=== PATIENT | female | born 1960 | race Caucasian/White ===

== ENCOUNTER → 2018-07-19 | Outpatient (CLI) | payer BC ==
--- NOTE | 2018-07-19 12:44 | MM ---
Reason for exam: screening (asymptomatic). Last mammogram was performed 1 year and 2 months ago. History: Patient is postmenopausal and is nulliparous. Took hormonal contraceptives for 25 years. Physical Findings: A clinical breast exam by your physician is recommended on an annual basis and results should be correlated with mammographic findings. MG Screening Mammo w CAD Bilateral CC and MLO view(s) were taken. Prior study comparison: May 31, 2017, mammogram, performed at [facility]. December 03, 2015, mammogram, performed at [facility]. The breast tissue is heterogeneously dense. This may lower the sensitivity of mammography. There is no discrete abnormality. No significant changes when compared with prior studies. ASSESSMENT: Negative, BI-RAD 1 RECOMMENDATION: Routine screening mammogram of both breasts in 1 year.
== END | disposition home or self-care (01) ==
LOC: RADMAMWWP 06:55
PROVIDERS: ATTEND Internal Medicine
DX: Z12.31 Encounter for screening mammogram for malignant neoplasm of breast (principal)
CPT/HCPCS: 77067

== ENCOUNTER → 2021-06-04 | Outpatient (CLI) | payer OTHER ==
--- NOTE | 2021-06-04 10:57 | XR ---
EXAMINATION TYPE: XR hand complete RT DATE OF EXAM: 06/04/2021 COMPARISON: NONE HISTORY: Right third digit redness and swelling TECHNIQUE: Three views are submitted. FINDINGS: The osseous structures are intact. The joint spaces are preserved and there is no acute fracture or dislocation. Tiny bony density seen adjacent to the PIP joint. Digit. Appears to be soft tissue janet a IMPRESSION: 1. Soft tissue edema involving the third digit with a tiny bony density adjacent to the PIP joint cou ld been the basis of a tiny avulsion fracture. Correlate for history of trauma. No destructive change s seen
== END | disposition home or self-care (01) ==
LOC: RADXRMAIN 10:20
PROVIDERS: ATTEND Emergency Medicine
DX: R60.9 Edema, unspecified (principal)

== ENCOUNTER → 2021-07-19 | Outpatient (CLI) | payer BC, MEDICAID ==
--- NOTE | 2021-07-20 10:31 | BD ---
EXAMINATION TYPE: Axial Bone Density DATE OF EXAM: 07/19/2021 COMPARISON: NONE CLINICAL HISTORY: Z78.0 POST MENOPAUSAL Height: 5 FT 5 IN Weight: 205 FRAX RISK QUESTIONS: Alcohol (3 or more units per day): NO Family History (Parent hip fracture): NO Glucocorticoids (More than 3mos): NO (Ex: prednisone, prednisolone, methylprednisolone, dexamethasone, and hydrocortisone). History of Fracture in Adulthood: NO Secondary Osteoporosis: 1. Type 1 Diabetes: NO 2. Hyperthyroidism: NO 3. Menopause before 45: NO 4. Malnutrition: NO 5. Chronic liver disease: NO Rheumatoid Arthritis: NO Current Tobacco Use: NO RISK FACTORS HISTORY OF: Surgery to Spine/Hip(right/left)/Wrist (right/left): LEFT HIP REPLACEMENT When: 2001 Family History of Osteoporosis: NO Active: YES Diet low in dairy products/other sources of calcium: NO Postmenopausal woman: YES Take estrogen and/or progesterone medications: NO Lost more than 2 inches in height since high school: Frequent falls: NO Poor Health: GOOD Hyperparathyroidism: NO Adrenal Insufficiency: NO MEDICATIONS: Additional Medications: BLOOD PRESSURE MEDS Additional History: EXAM MEASUREMENTS: Bone mineral densitometry was performed using the [employer] System. Bone mineral density as measured about the Lumbar spine is: ----- L1-L4(G/cm2): 1.199 T Score Values are as follows: ----- L2: -0.7 ----- L3: 0.1 ----- L4: 0.5 ----- L1-L4: 0.2 BASELINE Bone mineral density about the R hip (g/cm2): 1.008 T Score values are as follows: -----R Neck: -0.2 -----R Total: 0.8 BASELINE IMPRESSION: Normal (Values between +1 and -1 indicate normal bone mass). Consider repeating this study in 5 year s or sooner if there is some new clinical indication. NOTE: T-SCORE=SD OF THE YOUNG ADULT MEAN.
--- NOTE | 2021-07-20 12:27 | MM ---
Reason for exam: screening (asymptomatic). Last mammogram was performed 3 years ago. History: Patient is postmenopausal and is nulliparous. Took hormonal contraceptives for 25 years. Physical Findings: A clinical breast exam by your physician is recommended on an annual basis and results should be correlated with mammographic findings. MG Screening Mammo w CAD Bilateral CC and MLO view(s) were taken. Prior study comparison: July 19, 2018, bilateral MG screening mammo w CAD. May 31, 2017, mammogram, performed at [facility]. There are scattered fibroglandular densities. No significant changes when compared with prior studies. ASSESSMENT: Benign, BI-RAD 2 RECOMMENDATION: Routine screening mammogram of both breasts in 1 year.
== END | disposition home or self-care (01) ==
LOC: RADMAMWWP 13:44
PROVIDERS: ATTEND Internal Medicine
DX: Z12.31 Encounter for screening mammogram for malignant neoplasm of breast (principal); Z78.0 Asymptomatic menopausal state
CPT/HCPCS: 77067; 77080

== ENCOUNTER 2022-03-17 08:49 | Emergency (ER) | payer MEDICAID, OTHER ==
[2022-03-17 08:54] VITALS: TEMP 99.1
--- NOTE | 2022-03-17 09:23 | ED ---
General Adult HPI - General Chief complaint: Allergic Reaction Stated complaint: Left arm swollen/pain Time Seen by Provider: 03/17/22 08:58 Source: patient, RN notes reviewed Mode of arrival: ambulatory Limitations: no limitations - History of Present Illness Initial comments: 7-year-old female presents emergency Department chief complaint of reaction from her shingles vaccine. Patient states she received this yesterday morning, started not feeling well yesterday low-grade temp, congestion. She states she was tested twice for cold which is negative. Patient called PCP advised to come emergency department. She states she has a small area of redness and swelling to her left arm but states it's nothing concerning, not worsening. Patient offers no difficulty. - Related Data Allergies Allergy/AdvReac Type Severity Reaction Status Date / Time No Known Allergies Allergy Verified 03/17/22 08:53 Review of Systems ROS Statement: Those systems with pertinent positive or pertinent negative responses have been documented in the HPI. ROS Other: All systems not noted in ROS Statement are negative. Past Medical History Past Medical History: Hypertension History of Any Multi-Drug Resistant Organisms: None Reported Past Surgical History: Joint Replacement Additional Past Surgical History / Comment(s): hip 2002 Past Psychological History: No Psychological Hx Reported Smoking Status: Never smoker Past Alcohol Use History: None Reported Past Drug Use History: None Reported General Exam Limitations: no limitations General appearance: alert, in no apparent distress Head exam: Present: atraumatic, normocephalic, normal inspection Eye exam: Present: normal appearance, PERRL, EOMI. Absent: scleral icterus, conjunctival injection, periorbital swelling ENT exam: Present: normal exam, mucous membranes moist Neck exam: Present: normal inspection, full ROM. Absent: tenderness, meningismus, lymphadenopathy Respiratory exam: Present: normal lung sounds bilaterally. Absent: respiratory distress, wheezes, rales, rhonchi, stridor Cardiovascular Exam: Present: regular rate, normal rhythm, normal heart sounds. Absent: systolic murmur, diastolic murmur, rubs, gallop, clicks Extremities exam: Present: other (Left deltoid region there is a small area of erythema mild tenderness) Neurological exam: Present: alert, oriented X3 Skin exam: Present: warm, dry, intact, normal color. Absent: rash Course Vital Signs 03/17/22 03/17/22 08:50 09:43 Temperature 99.1 F Pulse Rate 109 H 75 Respiratory 18 16 Rate Blood Pressure 148/80 130/80 O2 Sat by Pulse 97 99 Oximetry Medical Decision Making - Medical Decision Making Patient has pain response, localized reaction from shingles vaccine patient has no signs distress will be discharged with strict return parameters. Disposition Clinical Impression: Vaccine reaction Disposition: HOME SELF-CARE Condition: Stable Instructions (If sedation given, give patient instructions): General Allergic Reaction (ED) Additional Instructions: Please return to the Emergency Department if symptoms worsen or any other concer ns. Is patient prescribed a controlled substance at d/c from ED?: No Referrals: Krishna Barr MD [Primary Care Provider] - 1-2 days Time of Disposition: 09:23
[2022-03-17 09:43] VITALS: BP 130/80; PULSE 75; RESP 16
== END 2022-03-17 10:02 | disposition home or self-care (01) ==
LOC: EC 08:49
DX: T88.1XXA Other complications following immunization, not elsewhere classified, initial encounter (principal); I10 Essential (primary) hypertension

== ENCOUNTER → 2022-06-28 | Outpatient (CLI) | payer MEDICAID ==
--- NOTE | 2022-06-28 17:32 | US ---
EXAMINATION TYPE: US kidneys/renal and bladder DATE OF EXAM: 06/28/2022 COMPARISON: NONE CLINICAL HISTORY: R82.998 OTHER ABNORMAL FINDINGS IN URINE. Calcium oxidate crystals in urine. EXAM MEASUREMENTS: Right Kidney: 13.8 x 6.5 x 5.8 cm Left Kidney: 11.5 x 5.6 x 6.5 cm Right Kidney: Appears enlarged. No hydronephrosis or masses seen Left Kidney: No hydronephrosis or masses seen Bladder: Appears anechoic. Bilateral Jets seen: Yes IMPRESSION: 1. No acute ultrasound abnormality bilateral kidneys. 2. No definite shadowing renal calculi identified during the exam.
== END | disposition home or self-care (01) ==
LOC: RADUSWWP 06:43
PROVIDERS: ATTEND Internal Medicine
DX: R82.998 Other abnormal findings in urine (principal)
CPT/HCPCS: 76770

== ENCOUNTER → 2023-01-10 | Outpatient (CLI) | payer BC ==
--- NOTE | 2023-01-11 18:42 | MM ---
Reason for Exam: Screening (asymptomatic). Last mammogram was performed 1 year(s) and 6 month(s) ago. Patient History: Menarche at age 17. Patient has no children. Postmenopausal. Patient used Hormonal Contraceptives for 25 years. Risk Values: Marcela 5 year model risk: 1.5%. NCI Lifetime model risk: 7.2%. Prior Study Comparison: 05/31/2017 Screening Mammogram, [facility]. 07/19/2018 Bilateral Screening Mammogram, [facility]. 07/19/2021 Bilateral Screening Mammogram, [facility]. Tissue Density: There are scattered fibroglandular densities. Findings: Analyzed By CAD. There appears symmetrical and stable. No significant interval change in No suspicious groups of microcalcifications, spiculated or lobular masses, architectural distortion or other secondary signs of malignancy are mammographically apparent. Overall Assessment: Benign, BI-RAD 2 Management: Screening Mammogram of both breasts in 1 year. A negative mammogram report should not preclude additional follow up of suspicious palpable abnormalities. Patient should continue monthly self breast exam. A clinical breast exam by your physician is recommended on an annual basis and results should be correlated with mammographic findings. Electronically signed and approved by: Td Saha D.O. Radiologis
== END | disposition home or self-care (01) ==
LOC: RADMAMWWP 13:19
PROVIDERS: ATTEND Internal Medicine
DX: Z12.31 Encounter for screening mammogram for malignant neoplasm of breast (principal); Z78.0 Asymptomatic menopausal state
CPT/HCPCS: 77063; 77067

== ENCOUNTER → 2023-05-29 | Outpatient (CLI) | payer OTHER ==
--- NOTE | 2023-05-29 16:18 | XR ---
EXAMINATION TYPE: XR cervical spine comp DATE OF EXAM: 05/29/2023 4:13 PM INDICATION: Patient age:Female; 63 years old; Reason for study: S70.02XA, S70.12XA; H. COMPARISON: None TECHNIQUE: The cervical spine was imaged in frontal, bilateral oblique, lateral, and odontoid project ions. FINDINGS: The osseous structures show normal alignment without evidence of an acute fracture. There are osteoph ytes noted throughout the cervical spine on the anterior and lateral aspects of the vertebral bodies. Multilevel disc space narrowing with endplate sclerosis which is most pronounced at C6-C7. Pedicles are intact. Soft tissues are within normal limits. The odontoid appears intact. IMPRESSION: 1. No fracture or dislocation. 2. Mild degenerative disc disease changes of the cervical spine.
--- NOTE | 2023-05-29 16:19 | XR ---
EXAMINATION TYPE: XR femur LT DATE OF EXAM: 05/29/2023 4:13 PM INDICATION: Patient age:Female; 63 years old; Reason for study: S70.02XA, S70.12XA; COMPARISON: None TECHNIQUE: The left femur was examined in AP and lateral projections. FINDINGS: Postsurgical changes from total left hip arthroplasty. Hardware appears intact with appropr iate alignment. No periprosthetic lucency. No evidence of acute osseous pathology, joint dislocation, or soft tissue swelling IMPRESSION: 1. No acute osseous pathology. 2. Post surgical changes from left total hip arthroplasty. Hardware appears intact with appropriate alignment.
--- NOTE | 2023-05-29 16:22 | XR ---
EXAMINATION TYPE: XR pelvis AP view DATE OF EXAM: 05/29/2023 4:13 PM INDICATION: Patient age:Female; 63 years old; Reason for study: S70.02XA, S70.12XA; [facility]. COMPARISON: None TECHNIQUE: The pelvis was examined in a single projection. FINDINGS: There is no evidence of fracture or dislocation. Postsurgical changes from left total hip a rthroplasty. Hardware is intact. There is no soft tissue abnormality. No abnormal calcifications are present. Multilevel degenerative changes of the lower spine. IMPRESSION: 1. No acute osseous pathology. 2. Postsurgical changes from left total hip arthroplasty.
--- NOTE | 2023-05-29 16:23 | XR ---
EXAMINATION TYPE: XR Hip Complete LT DATE OF EXAM: 05/29/2023 4:13 PM CLINICAL INDICATION:Female, 63 years old with history of S70.02XA, S70.12XA; [facility] COMPARISON: Pelvis radiograph same day. TECHNIQUE: XR Hip Complete LT; hip was examined in the frontal and lateral projections FINDINGS: Post arthroplasty changes, hardware is intact, alignment is appropriate. No evidence of fra cture. Postoperative changes of the soft tissues with subcutaneous gas. No evidence of any acute osse ous pathology or joint dislocation. IMPRESSION: Hip arthroplasty with hardware intact and in appropriate alignment. No acute fracture.
== END | disposition home or self-care (01) ==
LOC: RADXRMAIN 15:43
PROVIDERS: ATTEND Emergency Medicine
DX: S70.02XA Contusion of left hip, initial encounter (principal); S70.12XA Contusion of left thigh, initial encounter; M50.323 Other cervical disc degeneration at C6-C7 level; X58.XXXA Exposure to other specified factors, initial encounter; Z96.642 Presence of left artificial hip joint
CPT/HCPCS: 72050; 72170; 73502

== ENCOUNTER → 2023-08-14 | Outpatient (CLI) | payer BC, OTHER ==
[2023-08-14 15:52] LABS: Basophils # (A) 0.07 X 10*3/uL (0.00-0.10); Basophils % (A) 0.9 %; Eosinophils # (A) 0.21 X 10*3/uL (0.04-0.35); Eosinophils % (A) 2.8 %; HGB 13.4 g/dL (12.0-15.0); Lymphocytes # (A) 2.96 X 10*3/uL (0.90-5.00); Lymphocytes % (A) 40.1 %; MCH 29.5 pg (27.0-32.0); MCHC 32.7 g/dL (32.0-37.0); MCV 90.3 FL (80.0-97.0); Mean Platelet Volume 10.2 FL (9.5-12.2); Monocytes # (A) 0.58 X 10*3/uL (0.20-1.00); Monocytes % (A) 7.9 %; NRBC Per 100 WBC 0 X 10*3/uL (0.00-0.01); Neutrophils # (A) 3.55 X 10*3/uL (1.80-7.70); Neutrophils % (A) 48.2 %; Platelet Count 355 X 10*3/uL (140-440); RBC 4.54 X 10*6/uL (4.10-5.20); RDW 12.2 % (11.5-14.5); WBC 7.38 X 10*3/uL (4.50-10.00)
[2023-08-14 16:41] LABS: ALT 34 U/L (8-44); AST 22 U/L (13-35); Albumin 4.5 g/dL (3.8-4.9); Albumin/Globulin Ratio 1.67 Ratio (1.60-3.17); Alkaline Phosphatase 74 U/L (41-126); BUN/Creat Ratio 19.14 Ratio (12.00-20.00); Blood Urea Nitrogen 13.4 mg/dL (9.0-27.0); Carbon Dioxide 23.6 mmol/L (21.6-31.8); Chloride 103 mmol/L (96-109); Chol/HDL Ratio 5.48 Ratio; Globulin 2.7 g/dL (1.6-3.3); Glucose 128 mg/dL (70-110); LDL Cholesterol,Calculated 135.1 mg/dL (0.0-131.0); Potassium 4.6 mmol/L (3.5-5.5); Sodium 141 mmol/L (135-145); Total Bilirubin 0.5 mg/dL (0.3-1.2); Total Protein 7.2 g/dL (6.2-8.2)
== END | disposition home or self-care (01) ==
LOC: LABWHC1 09:50
PROVIDERS: ATTEND Internal Medicine
DX: I10 Essential (primary) hypertension (principal); E11.69 Type 2 diabetes mellitus with other specified complication
CPT/HCPCS: 36415; 80053; 80061; 83036; 84443; 85025

== ENCOUNTER → 2023-11-25 | Outpatient (CLI) | payer BC ==
[2023-11-25 22:42] LABS: ALT 33 U/L (8-44); AST 23 U/L (13-35); Albumin 4.4 g/dL (3.8-4.9); Albumin/Globulin Ratio 1.57 Ratio (1.60-3.17); Alkaline Phosphatase 72 U/L (41-126); BUN/Creat Ratio 27.83 Ratio (12.00-20.00); Blood Urea Nitrogen 16.7 mg/dL (9.0-27.0); Calcium 9.5 mg/dL (8.7-10.3); Chloride 103 mmol/L (96-109); Chol/HDL Ratio 4.94 Ratio; Globulin 2.8 g/dL (1.6-3.3); Glucose 125 mg/dL (70-110); Potassium 4.6 mmol/L (3.5-5.5); Sodium 140 mmol/L (135-145); Total Bilirubin 0.3 mg/dL (0.3-1.2); Total Protein 7.2 g/dL (6.2-8.2)
== END | disposition home or self-care (01) ==
LOC: LABWHC1 08:17
PROVIDERS: ATTEND Internal Medicine
DX: E11.69 Type 2 diabetes mellitus with other specified complication (principal)
CPT/HCPCS: 36415; 80053; 80061; 83036

== ENCOUNTER → 2024-01-29 | Outpatient (CLI) | payer BC ==
--- NOTE | 2024-01-29 19:54 | MR ---
EXAMINATION TYPE: MR brain wo/w con DATE OF EXAM: 01/29/2024 COMPARISON: None HISTORY: Headaches on left side temporal area x2 months, TECHNIQUE: Multiplanar, multisequence images of the brain and brainstem is performed without and with IV contras t, utilizing 9.5 mL intravenous Gadavist . FINDINGS: On the T1-weighted sagittal images there is a partial empty sella turcica. The ventricles, basal cisterns and sulci over the convexities are within normal limits and there is n o mass effect or shift of midline structures There are a few scattered focal hyperintense foci within the white matter of the cerebral hemispheres . This is a nonspecific finding and most likely reflects chronic ischemic white matter disease. On th e diffusion-weighted images, there is no diffusion restriction or acute ischemic event. Following contrast administration, there is no pathological enhancement. The posterior fossa including the brainstem, fourth ventricle and cerebellar pontine angles appear no rmal. Intraorbital contents are normal and symmetric. Visualized paranasal sinuses and mastoid air cells ar e well aerated. IMPRESSION: 1. A few scattered nonspecific white matter changes, likely chronic ischemic change. 2. No mass, mass effect or acute ischemic event. 3. No pathological enhancement throughout the brain parenchyma.
== END | disposition home or self-care (01) ==
LOC: RADMRIMAIN 17:35
PROVIDERS: ATTEND Psychiatry & Neurology Behavioral Neurology & Neuropsychiatry
DX: G43.709 Chronic migraine without aura, not intractable, without status migrainosus (principal)
CPT/HCPCS: 70553; A9585

== ENCOUNTER → 2024-11-15 | Outpatient (CLI) | payer BC ==
--- NOTE | 2024-11-18 08:10 | MM ---
Reason for Exam: Screening (asymptomatic). Last mammogram was performed 1 year(s) and 10 month(s) ago. Patient History: Menarche at age 17. Patient has no children. Postmenopausal. Patient used Hormonal Contraceptives for 25 years. Risk Values: Marcela 5 year model risk: 1.6%. NCI Lifetime model risk: 6.8%. Prior Study Comparison: 07/19/2018 Bilateral Screening Mammogram, [facility]. 07/19/2021 Bilateral Screening Mammogram, [facility]. 01/10/2023 Bilateral MG 3D screening mammo w/cad, [facility]. Tissue Density: The breasts are heterogeneously dense, which may obscure small masses. Findings: Analyzed By CAD. There is no suspicious group of microcalcifications or new suspicious mass in either breast. Overall Assessment: Negative, BI-RAD 1 Management: Screening Mammogram of both breasts in 1 year. . Patient should continue monthly self-breast exams. A clinical breast exam by your physician is recommended on an annual basis. This exam should not preclude additional follow-up of suspicious palpable abnormalities. Note on Marcela scores and lifetime risk: 1. A Marcela score greater than 3% is considered moderate risk. If this is the case, consider specialist referral to assess eligibility for a risk reducing agent. 2. If overall lifetime risk for the development of breast cancer is 20% or higher, the patient may qualify for future screening with alternating mammogram and breast MRI. [facility], , 11/18/2024 8:07 AM. Electronically signed and approved by: Gus Machado M.D. Radiologis
== END | disposition home or self-care (01) ==
LOC: RADMAMWWP 15:20
PROVIDERS: ATTEND Internal Medicine
DX: Z12.31 Encounter for screening mammogram for malignant neoplasm of breast (principal); R92.333 Mammographic heterogeneous density, bilateral breasts; Z78.0 Asymptomatic menopausal state; Z92.0 Personal history of contraception
CPT/HCPCS: 77067